=== PATIENT | female | born 1945 | race Caucasian/White ===

== ENCOUNTER → 2017-12-23 | Outpatient (CLI) | payer MEDICARE ==
[2017-12-23 15:35] LABS: ESTIMATED AVERAGE GLUCOSE 97 MG/DL (60-110)
[2017-12-23 15:40] LABS: GLUCOSE, FASTING 77 MG/DL (70-100)
[2017-12-23 15:51] LABS: THYROGLOBULIN ANTIBODY 28.2 U/ML (<60.0); THYROID PEROXIDASE ANTIBODY < 28.0 U/ML (<60.0)
[2017-12-26 00:09] LABS: INSULIN LEVEL 2.9 uIU/mL (2.6-24.9)
[2017-12-26 00:09] LABS: SOMATOMEDIN-C INSULIN GROWTH 67 ng/mL (37-165)
== END ==
LOC: M LAB 13:37
DX: R68.89 Other general symptoms and signs (principal); R53.83 Other fatigue
CPT/HCPCS: 82947

== ENCOUNTER → 2018-01-20 | Outpatient (CLI) | payer MEDICARE | LOC: M LAB 13:15 | DX: R05 Cough (principal) | CPT/HCPCS: 71046 ==